=== PATIENT | male | born 1975 | race Caucasian/White ===

== ENCOUNTER 2020-06-12 12:56 | Outpatient (CLI) | payer OTHER, SELFPAY ==
--- NOTE | ~2020-06-12 | MR_ITS ---
EXAMINATION: MR brain/brain stem wo/w con EXAM DATE: 06/12/2020 13:56 INDICATION: Migraine headaches mostly right-sided beginning of this year. TECHNIQUE: Magnetic resonance imaging (MRI) of the brain/brain stem obtained without contrast. Sagit damien T1, axial diffusion, gradient echo (T2*), T1, T2, FLAIR sequences obtained. Patient was then inj ected with 20 cc intravenous Multihance contrast. Axial and coronal postcontrast T1 weighted sequence s obtained. There is no prior study for comparison. FINDINGS: There are no areas of restricted diffusion to suggest acute infarction. There is no acute hemorrhage seen on the T2*, a hemosiderin sensitive sequence. No intraparenchymal brain mass. The ve ntricles are normal in size. There are no extra-axial collections. Flow voids are seen in the cereb ral arteries on the T2-weighted sequences consistent with their expected patency. The orbits are unr emarkable. Soft tissue is unremarkable. There are no areas of abnormal enhancement on the postcont rast images. Small right maxillary sinus retention cyst. IMPRESSION: 1. Small right maxillary sinus retention cyst. 2. No suspicious brain findings. Reviewed, dictated and finalized at location A.
[2020-06-12 13:35] LABS: Estimated Glomerular Filt Rate > 60
== END 2020-06-12 12:57 | disposition home or self-care (01) ==
PROVIDERS: PCP Internal Medicine; Visit Provider Nurse Practitioner
DX: G43.909 Migraine, unspecified, not intractable, without status migrainosus (principal)
CPT/HCPCS: 70553; A9577

== ENCOUNTER 2021-06-19 14:30 | Outpatient (RCR) | payer OTHER, SELFPAY ==
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
--- NOTE | 2021-05-15 15:19 | PCPTNOTE ---
Patient called & cancelled scheduled appointment this date due to not feeling well.
--- NOTE | 2021-05-20 08:23 | PCPTNOTE ---
Patient called & cancelled scheduled appointment this date due to sickness.
--- NOTE | 2021-06-17 13:55 | PCPTNOTE ---
Addendum entered by Ning Hudson, TOOL GRINDER 06/17/21 14:11: Patient arrived to appointment thinking it was 14:30 this date, reminded appointment is at 14:30 on . Original Note: Patient did not show up for scheduled appointment this date; called and left voicemail for reminder on next appointment.
[2021-06-19 14:31] VITALS: BP_SYST 160
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
== END 2021-06-20 09:14 | disposition home or self-care (01) ==
LOC: ANHPT 14:30
PROVIDERS: PCP Internal Medicine; Visit Provider Nurse Practitioner
DX: M25.519 Pain in unspecified shoulder (principal)
CPT/HCPCS: 97014; 97110; 97140; 97162; G0283

== ENCOUNTER 2023-11-29 10:37 | Outpatient (CLI) | payer OTHER, SELFPAY ==
[2023-11-29 12:54] LABS: Basophils Percent Auto 0.5 % (0.2-1.2); Eosinophils Absolute Auto 0.2 K/mm3 (0-0.3); Eosinophils Percent Auto 2.4 % (0-4.4); Hematocrit 41.6 % (42.0-52.0); Hemoglobin 14.2 g/dL (14.0-18.0); Immature Granulocyte Absolute 0.02 K/mm3 (0.00-0.031); Immature Granulocyte Percent A 0.2 % (0-0.5); Lymphocytes Absolute Auto 2.86 K/mm3 (0.9-3.2); Lymphocytes Percent Auto 34.8 % (18.3-44.2); Mean Corpuscular HGB Conc 34.1 g/dl (32-36); Mean Corpuscular Hemoglobin 30.2 pg (26-34); Mean Corpuscular Volume 88.5 fl (80-100); Mean Platelet Volume 9.7 fl (7.4-10.4); Monocytes Absolute Auto 0.6 K/mm3 (0.1-0.6); Monocytes Percent Auto 6.9 % (2.6-8.5); Neutrophils Absolute Auto 4.5 K/mm3 (1.3-6.7); Neutrophils Percent Auto 55.2 % (45.5-73.1); Platelet Count Result 413 k/mm3 (150-375); Red Cell Distribution Width 12.9 % (11.5-14.5); White Blood Count 8.2 K/mm3 (4.5-10.0)
[2023-11-29 13:02] LABS: Alanine Aminotransferase 28 U/L (6-50); Albumin Level 4.2 g/dL (3.5-5.1); Alkaline Phosphatase 45 U/L (38-126); Anion Gap 7 mmol/L (8-16); Aspartate Amino Transferase 55 U/L (17-59); Bilirubin,Total 0.7 mg/dL (0.2-1.3); Blood Urea Nitrogen 25 mg/dL (9-20); Calcium 9.1 mg/dL (8.4-10.2); Carbon Dioxide 24 mmol/L (22-30); Chloride 107 mmol/L (98-107); Cholesterol 126 mg/dL (0-200); Estimated Glomerular Filt Rate 59; Glucose 102 mg/dL (65-110); HDL Direct 25 mg/dL; Potassium 4.2 mmol/L (3.4-5.0); Sodium 138 mmol/L (137-145); Triglycerides 55 mg/dL (<150)
[2023-11-29 13:14] LABS: LDL Cholesterol Direct 94 mg/dL
[2023-11-29 15:14] LABS: Hemoglobin A1C 5.4 % (<5.7)
== END 2023-11-29 10:38 | disposition home or self-care (01) ==
LOC: ANHGOSHLAB 10:38
PROVIDERS: PCP Family Medicine; Visit Provider Family Medicine
DX: R53.83 Other fatigue (principal); E16.1 Other hypoglycemia; Z13.220 Encounter for screening for lipoid disorders; Z13.228 Encounter for screening for other metabolic disorders; Z13.29 Encounter for screening for other suspected endocrine disorder
CPT/HCPCS: 36415; 80053; 80061; 83036; 84443; 85025

== ENCOUNTER 2023-12-04 09:54 | Outpatient (CLI) | payer OTHER, SELFPAY ==
--- NOTE | ~2023-12-04 | XR_ITS ---
XR elbow LT 2V 12/04/2023 10:32 INDICATION: Left elbow pain PROCEDURE: 2 views left elbow COMPARISON: No prior studies for comparison. FINDINGS: Fracture, dislocation or subluxation is not identified. The soft tissues appear within norm al limits. No foreign bodies are identified. IMPRESSION: 1: NO ACUTE BONE OR JOINT ABNORMALITY IDENTIFIED. Reviewed, dictated and finalized at location A.
== END 2023-12-04 09:55 ==
PROVIDERS: PCP Family Medicine; Visit Provider Family Medicine
DX: M25.522 Pain in left elbow (principal)
CPT/HCPCS: 73070

== ENCOUNTER 2024-06-08 01:49 | Day surgery (SDC) | payer OTHER, SELFPAY ==
[2024-05-30 15:17] VITALS: BMI 31.7
--- NOTE | 2024-05-30 15:27 | SUR.PREOP ---
Report to the Outpatient Waiting Room, entrance under the green pavilion located off [facility], at time 10:30a.m. on date 06/08/2024. Planned Procedure Time: 12:30 p.m.? Time changes happen often and if your time is changed the preop area will call you the afternoon before. - You and your visitor will be asked to self-screen and do not enter if you have any COVID symptoms. Please call surgeon if you need to reschedule. - A mask is optional within the hospital at this time. Patients may have clear liquids (water, carbonated beverages, clear teas, apple juice) until 3 hours prior to surgery with a maximum of 20 ounces. - No food from midnight until time of surgery and no smoking - Infants may have breast milk until 4 hours before surgery, formula 6 hours prior to surgery. - Children will be allowed to drink immediately following surgery.? If applicable, please bring a bottle or sippy cup to assist with drinking. Juice, water, soda, and popsicles are readily available.? For infants on formula, please bring formula the day of surgery.? Pacifiers are allowed. Take only the following medications with a SIP of water on the morning of surgery: N/A DO NOT STOP ANY OF YOUR OTHER PRESCRIPTION MEDICATIONS PRIOR TO SURGERY EXCEPT THE FOLLOWING Medications to discontinue per physician: N/A Date to take last dose N/A Please no make-up, nail greek, hairspray, perfume, deodorant, or body powder the day of surgery.? No jewelry (including any body piercings) or valuables the day of surgery, leave them at home.? Please take a shower or bath the night before, or the morning of, surgery with an antibacterial soap.? Wear comfortable, loose fitting clothing.? Children are encouraged to wear pajamas. - Jewelry must be removed prior to entering the operating room.? Rings and piercings that are not removed may be cut off. - The hospital will not accept responsibility for valuables.? - Please leave all valuables, including medications, at home the day of surgery. If you are going home after surgery, a licensed cement truck driver must drive you home.? - NO public transportation without another adult if you receive anesthesia. - We recommend that an adult stay with you for 24 hours following discharge. - We also recommend that you do not drive, make important decision, drink alcoholic beverages, or take any drugs that were not prescribed by your health care provider for at least 24 hours after your discharge time. For Pediatric surgeries, we recommend two adults accompany the child home. Follow any additional instructions given to you from your surgeon. Telephone instructions given to Mike Mckenzie and asked if any additional questions and then verbalized understanding. Patient advised to call surgeon office or pre surgery nurse liaison [phone] if any additional questions.
[2024-06-08] VITALS (9 sets, daily range): BP systolic 110–149; BP diastolic 73–95; PULSE 62–79; RESP 10–18; TEMP 36.3–36.4; O2SAT 98–100; BMI 33.3
--- NOTE | 2024-06-08 07:18 | WPDHPUPDATE1 ---
History and Physical Update Update Date/Time: 06/08/24 07:18 History and Physical has been reviewed, including an updated exam of the patient. There are NO changes in the patient's condition. Risks, benefits, and alternatives have been discussed and questions answered. Patient agrees to proceed with procedure.
[2024-06-08] MEDS: LACTATED RINGERS 1,000 ML 30 ML IV CONT ×2 (11:00→14:17)
[2024-06-08] MEDS: ACETAMINOPHEN 500 MG TABLET 1000 MG PO (11:27)
[2024-06-08] MEDS: KETOROLAC 15 MG/ML VIAL (*BKC) IV PUSH (11:27)
--- NOTE | 2024-06-08 11:55 | WPDANESEPPF ---
Anes - Initial Pre Proc Eval Procedure: Operation Date: 06/08/24 12:30 Proposed Procedures p Left Elbow Common Extensor Debridement - Yariel Arriola MD Date/Time: 06/08/24 11:55 Surgeon: Yariel Arriola MD Pre Op Diagnosis: Lt Elbow Lateral Epicondylitis Patient Data Age: 49 Gender: M Height: 1.83 m Weight: 111.6 kg Last Vital Signs Temp 97.5 F L 06/08/24 11:39 Pulse 68 06/08/24 11:39 Resp 18 06/08/24 11:39 BP 135/91 H 06/08/24 11:39 Pulse Ox 99 06/08/24 11:39 O2 Del Method Room Air 06/08/24 11:39 Allergies Allergy/AdvReac Type Severity Reaction Status Date / Time No Known Allergies Allergy Unknown Verified 05/30/24 15:16 Home Medications Medication Instructions Recorded Confirmed Type testosterone cypionate 100 mg/mL 50 mg IM MONTHLY 02/16/20 05/30/24 History intramuscular oil tadalafil 5 mg tablet 5 mg PO DAILY 10/27/23 05/30/24 History pantoprazole 40 mg tablet,delayed 40 mg PO BID #180 tabs 01/11/24 05/30/24 Rx release phentermine 37.5 mg capsule 37.5 mg PO DAILY #30 caps 04/10/24 05/30/24 Rx Patient hx anesthesia problems: none Family hx anesthesia problems: none Results Review: All pre-operative results and documents have been reviewed as part of the pre-operative evaluation. [facility] Past Medical History Medical History Hernia Hyperlipidemia Internal hemorrhoids Surgical History Surgical History H/O vasectomy 11/2019 History of hernia repair Family History Family History Mother Patient's mother is in good health Father Diabetes mellitus Social History Social History Social History: Caffeine occasionally Years smoked: 20 Smoking status: Former smoker Tobacco type: cigarettes Second hand tobacco smoke exposure: No Smoking end date: 08/26/17 Alcohol intake: never Substance use: never Substance use type: does not use Last use: 2017 Lack of Transportation: No Lack of Food: Never True Current Housing: I Have Housing Concerned About Future Housing: No Difficulty Paying Gas/Electric Bills: No Difficulty Paying for Meds: No Currently Unemployed: No Education: Associate Degree Difficulty w/ Childcare or Family Care: No Living arrangements: with family Anes - Eval Final PreProcedure Day of Procedure 06/08/24 11:55 Patient weight: obese Heart: regular rate and rhythm Lungs: clear to auscultation Airway: Mallampati scale class II Neurological: alert and oriented Last oral intake: >/= 8 hours ASA classification: II Emergent: no Anesthetic plan: proceed Anesthesia type and monitoring: general LMA and standard monitoring Results Review: All pre-operative results and documents have been reviewed as part of the pre-operative evaluation. Pt w LISA, has inspire device. Diet controlled hyperlipidemia. Informed Consent: The patient's anesthetic plan and its attendant risks and benefits were discussed with the patient/family/POA. Questions were solicited and answers provided to the satisfaction of the patient/family/POA.
[2024-06-08] MEDS: ceFAZolin 2 GM/D5W 50 ML 2 GM/50 ML BAG IVPB (12:25)
[2024-06-08] MEDS: BUPIVACAINE/EPINEPHRINE 0.5% 50 ML VIAL 30 ML INFILTRATE (12:55)
--- NOTE | 2024-06-08 13:46 | P.OP_ITS ---
Procedure Note - Detailed Date of Procedure 06/08/24 Pre-op Diagnosis Lt Elbow Lateral Epicondylitis Post-op Diagnosis Same Procedure Performed Common extensor tendon debridement left elbow. 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 Findings Typical degenerative tendon at the extensor carpi radialis brevis insertion. Description of Procedure Preoperative antibiotics were given. The arm was prepped and draped in the usual sterile fashion with a well-padded tourniquet high in the arm. A longitudinal incision was created at the lateral epicondyle anterior to the radial head. The interval between the extensor carpi radialis longus and the common extensor tendon was easily identified and split. The common extensor tendon was elevated and the extensor carpi radialis brevis was identified. There was significant degenerative tissue and evidence of rupture, corresponding with the MRI findings. Tissue was sharply debrided and then the scratch test was used to complete the debridement. The bony attachment was lightly debrided with the curette and rongeur. Inspection of the joint revealed no abnormal findings. The lateral collateral ligament was intact and preserved. Wound was copiously irrigated. Tourniquet was released. Meticulous hemostasis obtained. The fascial interval was closed with 2-0 Vicryl suture. The subcutaneous tissues and skin were closed with interrupted 3-0 Monocryl suture and 4-0 Monocr yl suture. Steri-Strips were placed followed by Mepilex dressing. Soft padding and light Ramon bandage applied. A sling placed. Cock-up wrist splint applied. The patient was extubated and brought to the recovery room in stable condition. 0.5% Marcaine with epinephrine was used for perioperative pain control. Estimated Blood Loss 5 Drains No Packing No Pathology None sent Complications No immediate complications Condition Stable Disposition PACU [facility] Billing Surgery - Charge Forward: Surgery Billing
== END 2024-06-08 15:09 | disposition home or self-care (01) ==
PROVIDERS: PCP Family Medicine; Visit Provider Orthopaedic Surgery
PROC: (CPT 24358; principal; 2024-06-08 12:30)
DX: M77.12 Lateral epicondylitis, left elbow (principal); S56.512A Strain of other extensor muscle, fascia and tendon at forearm level, left arm, initial encounter; E78.5 Hyperlipidemia, unspecified; E66.9 Obesity, unspecified; Z68.33 Body mass index [BMI] 33.0-33.9, adult; Z98.890 Other specified postprocedural states; Z87.891 Personal history of nicotine dependence; X58.XXXA Exposure to other specified factors, initial encounter
CPT/HCPCS: 24358; A9270; J0690; J1100; J1170; J1885; J2250; J2405; J2704; J3010; J7120

== ENCOUNTER 2024-09-03 10:38 | Emergency (ER) | payer OTHER, SELFPAY ==
[2024-09-03 10:41] VITALS: BP 157/98; PULSE 81; RESP 20; O2SAT 97
[2024-09-03 10:43] VITALS: BP 170/90; PULSE 81; RESP 20; TEMP 36.6; O2SAT 97
--- NOTE | 2024-09-03 11:18 | ED.GENADULT ---
HPI - General Adult General Chief complaint: Neuro Symptoms/Deficit Stated complaint: nuero Time Seen by Provider: 09/03/24 11:00 History of Present Illness HPI narrative: Patient is a 49-year-old male who presents ER with tingling and weakness to the right face. Two days ago he started feeling like his lip and jaw were numb like he had been at the [place]. This increased over last 2 days and he is having trouble with drinking. He also has noticed that his strength on the right side is not as strong in the eyebrow and cheek. No arm or leg weakness or numbness. No trauma. Has had a mild cold recently. Related Data Home Medications ?Medication ?Instructions ?Recorded ?Confirmed ?Last Taken ?Type testosterone cypionate 100 mg/mL 50 mg IM MONTHLY 02/16/20 07/21/24 Unknown History intramuscular oil tadalafil 5 mg tablet 5 mg PO DAILY 10/27/23 07/21/24 06/07/24 History Allergies Allergy/AdvReac Type Severity Reaction Status Date / Time No Known Allergies Allergy Unknown Verified 09/03/24 10:40 Review of Systems Constitutional: Constitutional: Reports no additional constitutional complaints Eyes: Eyes: Reports no additional eye complaints Neurologic: Denies headache(s), Reports focal weakness and Reports numbness PMFSH Past Medical History Medical History (Updated 09/03/24 @ 11:21 by Alberto Gil MD) Internal hemorrhoids Hernia Hyperlipidemia Surgical History Surgical History (Updated 07/21/24 @ 08:03 by Mary Shah [facility]) History of elbow surgery (~06/08/24) Left elbow common extensor MI H/O vasectomy 11/2019 History of hernia repair Family History Family History Mother Patient's mother is in good health Father Diabetes mellitus Social History Social History Social History: Caffeine occasionally Years smoked: 20 Smoking status: Former smoker Tobacco type: cigarettes Second hand tobacco smoke exposure: No Smoking end date: 08/26/17 Alcohol intake: never Substance use: never Substance use type: does not use Last use: 2016 Lack of Transportation: No Lack of Food: Never True Current Housing: I Have Housing Concerned About Future Housing: No Difficulty Paying Gas/Electric Bills: No Difficulty Paying for Meds: No Currently Unemployed: No Education: Associate Degree Difficulty w/ Childcare or Family Care: No Living arrangements: with family Exam Narrative: GENERAL: Well-appearing, well-nourished, and in no acute distress. HEAD: Normocephalic, atraumatic. ENT: Mucous membranes moist. CHEST: Clear to auscultation. No respiratory distress. HEART: Regular rate and rhythm. Normal peripheral pulses. EXTREMITIES: Normal range of motion. No edema. SKIN: Warm, dry, no rash. NEURO: Alert and oriented x3. Weakness of the right face when trying to lift both eyebrows and unable to smile on the right. No upper extremity drift. 5/5 BUE strngth. Normal heel to diane testing. PSYCH: Normal mood and affect. Course Course Emergency Course: patient informed of diagnosis. Discussed treatment plan. Given reassurance. Discharged home and follow-up with PCP. Discussed her eye protection at night and while at work. Vital Signs Vital signs: Vital Signs Pulse Rate 81 09/03/24 10:41 Respiratory Rate 20 09/03/24 10:41 Blood Pressure 157/98 H 09/03/24 10:41 Pulse Oximetry 97 09/03/24 10:41 Temperature 97.9 F 09/03/24 10:43 Pulse Rate 81 09/03/24 10:43 Respiratory Rate 20 09/03/24 10:43 Blood Pressure 170/90 H 09/03/24 10:43 Pulse Oximetry 97 09/03/24 10:43 Oxygen Delivery Room Air 09/03/24 10:43 Medical Decision Making Vital Signs Vital Signs: Vital Signs Pulse Rate 81 09/03/24 10:41 Respiratory Rate 20 09/03/24 10:41 Blood Pressure 157/98 H 09/03/24 10:41 Pulse Oximetry 97 09/03/24 10:41 Temperature 97.9 F 09/03/24 10:43 Pulse Rate 81 09/03/24 10:43 Respiratory Rate 20 09/03/24 10:43 Blood Pressure 170/90 H 09/03/24 10:43 Pulse Oximetry 97 09/03/24 10:43 Oxygen Delivery Room Air 09/03/24 10:43 Discharge Plan Discharge Clinical Impression: Davenport's palsy Patient Disposition: Home, Self-Care Condition: Stable Instructions: Davenport Palsy (ED) Additional Instructions: Return the ER if you have weakness in arm or leg, you develop chest pain shortness of breath, you can not keep down food water, or you have additional concerns. Use a eye shield when sleeping to protect her eye from being scratched. Use lubricating eye drops to keep the eye from drying out, and take the prescribed steroid and antiviral medication to help speed your recovery. Patient Language: Divehi Prescriptions: New valacyclovir 1 gram tablet 1,000 mg PO TID 7 Days Qty: 21 0RF prednisone 20 mg tablet 60 mg PO DAILY 7 Days Qty: 21 0RF prednisone 20 mg tablet 60 mg PO DAILY Qty: 21 0RF valacyclovir 1 gram tablet 1,000 mg PO TID Qty: 21 0RF No Action testosterone cypionate 100 mg/mL oil 50 mg IM MONTHLY Rx Instructions: as a single dose. PRESCRIBED BY DR. ARRIAGA tadalafil 5 mg tablet 5 mg PO DAILY phentermine 37.5 mg capsule 37.5 mg PO DAILY Qty: 30 0RF Rx Instructions: must administer 30 minutes before or 1-2 hours after breakfast pantoprazole 40 mg tablet,delayed release (/EC) 40 mg PO BID Qty: 180 1RF Follow-up/Referrals: Johnny Schmitt DO [Primary Care Provider] - 1 Week
--- OUTSIDE RECORDS SUMMARY | 2024-09-10 13:56 | XMS_ITS | Encounter Summary ---
Author Organization [facility] Address [address] [place] [id number] Care Team Providers Care Track Worker Name Role Phone Unavailable Primary Care Provider Unavailabl e Encounter Details Date Type Department Care Team (Late st Contact Info) Description 12/04/2020 Lab Requisition [facility] [place] [facility] Community Testing [facility] [address] [place] [address] Syed Valentine MD [address] [place] [address] [address] [place], [place] [id number] Social History Tobacco Use Types Packs/Day Years Used Date Smoking Tobacco: Never Assessed Sex and Gender Information Value Date Recorded Sex Assigned at Not on file Legal Sex Male 11:08 AM CDT Gender Identity Not on file Sexual Orientation Not on file documented as of this encounter Plan of Treatment Not on file documented as of this encounter Procedures Procedure Name Priority Date/Time Associated Diagnosis Comments SARS-COV-2 PCR [facility] ONLY Routine 12/04/2020 11:12 AM CDT documented in this encounter Visit Diagnoses Not on filedocumented in this encounter
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
--- OUTSIDE RECORDS SUMMARY | 2024-09-10 13:56 | XMS_ITS | Referral Summary ---
Author Organization [facility] Address [address] [place] [address] Care Team Providers Care Shirt Line Operator Name Role Phone Garrett Jean DO Primary Care Provider [phone] [phone] Source Comments [facility],non-owned Affiliates and Associated Physician Practices is amultiple site organization consisting of ambulatory clinics and hospital sitesin [place], [place], [place] and [place]. This disclosure is being madepursuant to the Care Everywhere program and may not contain all information available regarding this patient. Last updated 18.[facility] Medications * Be aware that medications may not be up to date on this document. Alwaysverify current medications with the patient. Medication Sig Dispensed Refills Start Date End Date Status B-D INSULIN SYRINGE 1CC/25GX1 25G X 1 1 ML MISC USE TO INJECT 0.2 ML TESTOSTERONE EVERY 3 DAYS 3 12/09/2017 Active pantoprazole EC (PROTONIX) 40 MG tablet 12/27/2017 Active testosterone cypionate (DEPO-TESTOTERONE) 200 MG/ML injection INJECT 0.2 ML INTERMUSCULARLY EVERY 3 DAYS 3 12/08/2017 Active ofloxacin (FLOXIN) 0.3 % otic solution 5 drops 2 times daily Apply 5 drops with mycolog 5 mL 12/28/2017 Active nystatin/triamcino lone (MYCOLOG) 799739-1.1 UNIT/GM-% ointment Apply to affected area 2 times daily Apply 3 times per week with external ear infections 500 g 2 12/28/2017 Active Active Problems Problem Noted Date Diagnosed Date Sensorineural hearing loss (SNHL) of both ears 0 12/28/2017 Chronic reactive otitis externa of both ears Social History Tobacco Use Types Packs/Day Years Used Date Smoking Tobacco: Former Cigarettes Q uit: 08/2017 Smokeless Tobacco: Never Tobacco Cessation:Counseling Given: Yes Alcohol Use Standard Drinks/Week Comments Yes 0 (1 standard drink = 0.6 oz pur e alcohol) yearly Sex and Gender Information Value Date Recorded Sex Assigned at Not on file Gender Identity Not on file Sexual Orientation Not on file Last Filed Vital Signs Vital Sign Reading Time Taken Comments Blood Pressure 132/90 12/28/2017 2:40 PM CDT Pulse 82 12/28/2017 2:40 PM CDT Temperature - - Respiratory Rate - - Oxygen Saturation - - Inhaled Oxygen Concentration - - Weight 115.2 kg (254 lb) 12/28/2017 2:40 PM CDT Height 182.9 cm (6') 12/28/2017 2:40 PM CDT Body Mass Index 34.45 12/28/2017 2:40 PM CDT Plan of Treatment Not on file Care Teams Shirt Line Operator Relationship Specialty Start Date End Date Garrett Jean DO PCP - General 12/22/17
--- OUTSIDE RECORDS SUMMARY | 2024-09-10 13:56 | XMS_ITS | Clinical Summary ---
Author Organization [facility] Care Team Providers Care Dredge Boat Engineer Name Role Phone Unavailable Primary Care Provider Unavailabl e Social History Tobacco Use Types Packs/Day Years Used Date Smoking Tobacco: Never Assessed Sex and Gender Information Value Date Recorded Sex Assigned at Not on file Legal Sex Male 11:08 AM CDT Gender Identity Not on file Sexual Orientation Not on file Plan of Treatment Health Maintenance Due Date Last Done Comments Hepatitis C Virus (HCV) Screening 1977 TdaP Immunization 1977 Hepatitis B Immunization (1 of 3 - 19+ 3-dose series) 1996 Colonoscopy 2022 Colorectal Cancer Screening 2022 SARS-COV-2 Immunization ( season) 2023 Influenza Immunization (Seas on Ended) 2024 Meningococcal Immunization (ACWY) Aged Out No longer eligible based on patient's age to complete this topic Pneumococcal Immunization Combined Aged Out No longer eligible based on patient's age to complete this topic Rotavirus Immunization Aged Out No lo nger eligible based on patient's age to complete this topic
--- OUTSIDE RECORDS SUMMARY | 2024-09-10 13:56 | XMS_ITS | Clinical Summary ---
Author Organization [facility] Address [address] [place] [address] Care Team Providers Care Wood Window And Door Craftsman Name Role Phone Garrett Jean DO Primary Care Provider [phone] [phone] Source Comments [facility],non-owned Affiliates and Associated Physician Practices is amultiple site organization consisting of ambulatory clinics and hospital sitesin [place], [place], [place] and [place]. This disclosure is being madepursuant to the Care Everywhere program and may not contain all information available regarding this patient. Last updated 18.[facility] Medications * Be aware that medications may [...] 5 mL 12/28/2017 Active nystatin/triamcino lone (MYCOLOG) 182575-5.1 UNIT/GM-% ointment Apply to affected area 2 times daily Apply 3 times per week with external ear infections 500 g 2 12/28/2017 Active Active Problems Problem Noted Date Diagnosed Date Sensorineural hearing loss (SNHL) of both ears 0 12/28/2017 Chronic reactive otitis externa of both ears Family History Medical History Relation Name Comments CVA Father Cancer - Other Father Diabetes - Type 2 Father Relation Name Status Comments Father Social History Tobacco Use Types Packs/Day Years [...] 12/28/2017 2:40 PM CDT Plan of Treatment Health Maintenance Due Date Last Done Comments COLOGUARD (AGES 45-75) - COL ON CA SCREENING 1977 COLON MONITORING 1977 COLONOSCOPY - COLON CA SCREENING 1977 CT COLONOGRAPHY - COLON CA SCREENING 1977 Colorectal Cancer Screening 1977 FIT - COLON CA SCREENING 1977 FLEX SIG - COLON CA SCREENING 1977 LIPID TESTING 1977 HIV SCREENING 1992 HEPATITIS C SCREENING 05/08/1995 DTAP/TDAP/TD VACCINES (1 - Tdap) 1996 HEPATITIS B VACCINE (1 of 3 - 19+ 3-dose series) 1996 SCREENING FOR DIABETES 12/28/2017 DEPRESSION SCREENING 09/13/2023 COVID-19 VACCINE ( - 2023-2 5 season) 2024 INFLUENZA VACCINE (#1) 2024 ZOSTER VACCINE (1 of 2) 2027 HIB VACCINE Aged Out No longer eligi ble based on patient's age to complete this topic HPV VACCINE Aged Out No longer eligi ble based on patient's age to complete this topic MENINGOCOCCAL VACCINE Aged Out No estela alexia eligible based on patient's age to complete this topic PNEUMOCOCCAL VACCINE Aged Out No long er eligible based on patient's age to complete this topic Care Teams Wood Window And Door Craftsman Relationship Specialty Start Date End Date Garrett Jean DO PCP - General 12/22/17
--- OUTSIDE RECORDS SUMMARY | 2024-09-10 13:56 | XMS_ITS | Encounter Summary ---
Author Organization [facility] Address [address] [place] [address] Care Team Providers Care Termite Treater Name Role Phone RacquelGarrett cruz Brittanie DO Primary Care Provider [phone] [phone] Reason for Visit * Reason Comments Establish Care Ear Infection Frequent Encounter Details Date Type Department Care Team (Late st Contact Info) Description 12/28/2017 2:30 PM CDT Office Visit [facility] OTOLARYNGOLOGY [address], [address] [place] [address] Jonathan Layne MD [address] [place] [address] Chronic reactive otitis externa of both ears (Primary Dx); Sensorineural hearing loss (SNHL) of both ears Social History Tobacco Use [...] on file documented as of this encounter Last Filed Vital Signs Vital Sign Reading [...] Mass Index 34.45 12/28/2017 2:40 PM CDT documented in this encounter Patient Instructions * Patient Instructions* Sylvie Roberts - 12/28/2017 2:41 PM CDT Thank you for visiting [facility] Otolaryngology - Head & Neck Surgery. We appreciate your confidence in allowing us to participate in your health care. You may receive a survey about your visit with us today. Making our patients happy isn???t just happy talk; it???s ourmission. Please tell us if we made the right impression on you- and how we can serve you better. Please SAVE the information below, it will assist you when it???s time for you to contact us. ??? To MAKE - CHANGE - CANCEL an office appointment If you become ill, need to be seen before your next scheduled appointment, or need to cancel or reschedule an appointment, please call our office at [phone] Wednesday through Wednesday from 8:30 am to4:30 pm. You can also request a routine appointment through your Fan TV account. ??? Prescription Refills Contact your pharmacy to request all refills. The pharmacy will need to fax the request to us at . Please allow a minimum of 48-72 hours for your prescription to be completed. Your pharmacy will notify you when your prescription is ready to be picked up. ??? Medical Emergency / After Hours Contact Information If you have a medical emergency, please call 911 or go to the nearest emergency room. For urgent medical calls, which cannot wait until the office opens, please call the medical exchange at and ask the pack operator to page the ENT physician munitions factory worker. *Caller ID blocking service will need to be turned off for your call to be returned. We also specialize in Hearing Aids, Allergy testing, swallowing disorders, voice problems, cancer diagnosis, and so much more. Visit our website at [email or web address] for information about our practice and an interactive health encyclopedia. documented in this encounter Progress Notes * Jonathan Layne MD - 12/28/2017 3:01 PM CDT [facility] Department of Otolaryngology-Head and Neck Surgery Division of Otology, Neurotology, and Lateral Skull Base Surgery History of Present Illness Chief complaint: Ear infections Jonathan is a 42 y.o. male who is seen in consultation for evaluation of ear infections. States that he has had bilateral ear infections since 2000. Since 2005 he has had multiple ear infections estimates 6-8 per year with the most recent being a month ago. Does endorse EAC symptomatology and swelling. Has had to have srinivasa placed previous. Denies otorrhea. + bilateral crusting. 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 Denies otologic surgery Denies family hx of hearing problems. . Past History No past medical history on file. Current Outpatient Prescriptions Medication Sig Dispense Refill ??? B-D INSULIN SYRINGE 1CC/25GX1 25G X 1 1 ML MISC USE TO INJECT 0.2 ML TESTOSTERONE EVERY 3 DAYS 3 ??? pantoprazole EC (PROTONIX) 40 MG tablet ??? testosterone cypionate (DEPO-TESTOTERONE) 200 MG/ML injection INJECT 0.2 ML INTERMUSCULARLY EVERY 3 DAYS 3 No current facility-administered medications for this visit. Not on File Past Surgical History: Procedure Laterality Date ??? Hernia Repair ??? Septoplasty ??? [place] Tooth Extraction Family History Problem Relation Age of Onset ??? Cancer - Other Father ??? Diabetes - Type 2 Father ??? CVA Father Social History Social History ??? Marital status: Single Spouse name: N/A ??? Number of children: N/A ??? Years of education: N/A Occupational History ??? Not on file. Social History Main Topics ??? Smoking status: Former Smoker Quit date: 08/2017 ??? Smokeless tobacco: Never Used ??? Alcohol use Yes Comment: yearly ??? Drug use: No ??? Sexual activity: Not on file Other Topics Concern ??? Not on file Social History Narrative ??? No narrative on file Review of Systems ROS: A complete 11 point review of systems was reviewed and was negative except for: Ears: excessive noise exposure (loud music), ear pain, loss of hearing, drainage ?? Physical Examination BP 132/90 (BP SITE: LEFT ARM, BP POSITION: SITTING, BP CUFF SIZE: 11) Pulse 82 Ht 6' (1.829 m) Wt 254 lb (115.2 kg) BMI 34.45 kg/m2 Body mass index is 34.45 kg/(m^2). Physical Exam: Constitutional: Alert, No acute Distress; Well developed/well nourished Neuro:cranial nerves II-XII grossly intact. Of note CN V bilaterally are intact and symmetric and HB 1 bilaterally. CV/Pulm: Normal respirations and peripheral pulses. Eyes: PERRL, EOMI Face/Skin: normal appearance, no lesions/masses Right Ear: Mastoid non-tender, pinna WNL without lesion, EAC clear, TM intact with normal landmarkls, HENRIQUE Left Ear: Mastoid non-tender, pinna WNL without lesion, EAC clear, TM intact with normal landmarks,HENRIQUE Nose: patent bilaterally, septum fairly straight, Turbinates intact, Mucosal membranes intact Mouth and oropharynx: symmetric tongue mobility, no lesions/masses/ulcers, normal dentition Neck: supple, no lymphadenopathy, no masses, Trachea midline, Thyroid without palpable nodules. Voice: strong MusculoSkeletal: moves all extremities well Audio:Personally reviewed with bilateral SNHL with type A tympas. Assessment 1. Chronic reactive otitis externa of both ears 2. Sensorineural hearing loss (SNHL) of both ears Plan 1. On exam Mr Mckenzie has a normal otologic exam today. His has pictures of his ears while infected and on review along with his history this is consistent with otitis externa. This is likely due to the fact that he uses ear plugs for hearing protection and sweats a great deal. 2. Recommend that he dry his ears after getting them wet with chairman emeritus. 3. Script for mycolog and floxin given to patient. Will start with floxin daily and mycolog every 3days once he starts to have symptoms. 4. Continue hearing protection 5. Follow up in 3 months sooner if there any issues. Jonathan Layne MD Act English Tutor at [facility] Department of Otolaryngology - Head and Neck Surgery Division of Otology, Neurotology and Lateral Skull Base Surgery * JefersonMega davisonra - 12/28/2017 2:38 PM CDT Review of Systems Jonathan Mckenzie reports the following; Ears: excessive noise exposure (loud music), ear pain, loss of hearing, drainage documented in this encounter Plan of Treatment Not on file documented as of this encounter Visit Diagnoses Diagnosis Chronic reactive otitis externa of both ears- Primary Sensorineural hearing loss (SNHL) of both ears documented in this encounter Care Teams Termite Treater Relationship Specialty Start Date End Date Garrett Jean DO PCP - General 12/22/17 documented as of this encounter
--- OUTSIDE RECORDS SUMMARY | 2024-09-10 13:56 | XMS_ITS | Encounter Summary ---
Author Organization [facility] Address [address] [place] [address] Care Team Providers Care Insurance Representative Name Role Phone Unavailable Primary Care Provider Unavailabl e Encounter Details Date Type Department Care Team (Late st Contact Info) Description 12/04/2020 11:15 AM CDT Rapid Evaluation [place] [facility] Community Testing [address] [address] Social History Tobacco Use Types Packs/Day Years Used Date Smoking Tobacco: Never Assessed Sex and Gender Information Value Date Recorded Sex Assigned at Not on file Legal Sex Male 11:08 AM CDT Gender Identity Not on file Sexual Orientation Not on file documented as of this encounter Plan of Treatment Not on file documented as of this encounter Visit Diagnoses Not on filedocumented in this encounter
--- OUTSIDE RECORDS SUMMARY | 2024-09-10 13:56 | XMS_ITS | Patient Health Summary ---
Author Organization [facility] Address [address] [place] [address] Care Team Providers Care Camp Dishwasher Name Role Phone Garrett Jean DO Primary Care Provider [phone] Note from [facility],non-owned Affiliates and Associated Physician Practices is amultiple site organization consisting of ambulatory clinics and hospital sitesin [place], [place] and [place]. This disclosure is being madepursuant to the Care Everywhere program and may not contain all information available regarding this patient. Last updated 18.[facility] Medications * Be aware that medications may not be up to date on this document. Alwaysverify current medications with the patient. * B-D INSULIN SYRINGE 1CC/25GX1 25G X 1 1 ML MISC(Started 12/09/2017) USE TO INJECT 0.2 ML TESTOSTERONE EVERY 3 DAYS 3 refills left * pantoprazole EC (PROTONIX) 40 MG tablet(Started 12/27/2017) * testosterone cypionate (DEPO-TESTOTERONE) 200 MG/ML injection(Started 12/08/2017) INJECT 0.2 ML INTERMUSCULARLY EVERY 3 DAYS 3 refills left * ofloxacin (FLOXIN) 0.3 % otic solution(Started 12/28/2017) 5 drops 2 times daily Apply 5 drops with mycolog * nystatin/triamcinolone (MYCOLOG) 668444-3.1 UNIT/GM-% ointment(Started 12/28/2017) Apply to affected area 2 times daily Apply 3 times per week with external ear infections 2 refills remaining Active Problems Problem Noted Date Diagnosed Date [...] Mass Index 34.45 12/28/2017 2:40 PM CDT Procedures * AUDIOLOGY/TYMPANOMETRY ORDER(Performed 12/30/2017) Results * AUDIOLOGY/TYMPANOMETRY ORDER (12/30/2017 5:40 AM CDT) Narrative 12/30/2017 5:40 AM CDT Ordered by an unspecified provider. Scanned Document [facility] Care Teams Camp Dishwasher Relationship Specialty Start Date End Date Garrett Jean DO PCP - General 12/22/17
--- OUTSIDE RECORDS SUMMARY | 2024-09-10 15:02 | XMS_ITS | Patient Health Summary ---
Author Organization [facility] Address [address] [place] [address] Care Team Providers Care Audio Video Technician Name Role Phone Garrett Jean DO Primary Care Provider [phone] Note from [facility],non-owned Affiliates and Associated Physician Practices is amultiple site organization consisting of ambulatory clinics and hospital sitesin [place], [place], [place] and [place]. This disclosure is being madepursuant to the Care Everywhere program and may not contain all information available regarding this patient. Last updated 18.[facility] Medications * Be aware that medications may [...] 5 drops with mycolog * nystatin/triamcinolone (MYCOLOG) 528243-8.1 UNIT/GM-% ointment(Started 12/28/2017) Apply to affected area [...] unspecified provider. Scanned Document [facility] Care Teams Audio Video Technician Relationship Specialty Start Date End Date Garrett Jean DO PCP - General 12/22/17
--- OUTSIDE RECORDS SUMMARY | 2024-09-10 15:02 | XMS_ITS | Clinical Summary ---
Author Organization [facility] Address [address] [place] [address] Care Team Providers Care Sales Product Manager Name Role Phone Garrett Jean DO Primary Care Provider [phone] Source Comments [facility],non-owned Affiliates and Associated Physician Practices is amultiple site organization consisting of ambulatory clinics and hospital sitesin [place], [place], [place] and [place]. This disclosure is being madepursuant to the Care Everywhere program and may not contain all information available regarding this patient. Last updated 18.[facility] Medications * Be aware that medications may [...] 5 mL 12/28/2017 Active nystatin/triamcino lone (MYCOLOG) 623895-0.1 UNIT/GM-% ointment Apply to affected area 2 [...] age to complete this topic Care Teams Sales Product Manager Relationship Specialty Start Date End Date Garrett Jean DO PCP - General 12/22/17
--- OUTSIDE RECORDS SUMMARY | 2024-09-10 15:02 | XMS_ITS | Encounter Summary ---
Author Organization [facility] Address [address] [place] [address] Care Team Providers Care Pad Extraction Tender Name Role Phone RacquelGarrett cruz Brittanie DO Primary Care Provider [phone] Reason for Visit * Reason Comments Establish Care Ear Infection Frequent Encounter Details Date Type Department Care Team (Late st Contact Info) Description 12/28/2017 2:30 PM CDT Office Visit [facility] OTOLARYNGOLOGY [address], [address] [place] [address] Jonathan Layne MD [address] DEPT [place] [address] Chronic reactive otitis externa of both ears [...] 2:41 PM CDT Thank you for visiting [facility] Otolaryngology - Head & Neck Surgery. We [...] an appointment, please call our office at [phone] Wednesday through Wednesday from 8:30 am to4:30 pm. You can also request a routine appointment through your [employer] account. ??? Prescription Refills Contact your pharmacy [...] the medical exchange at and ask the foreman or supervisor and operator to page the ENT physician chief compressor station engineer. *Caller ID blocking service will need to be turned off for your call to be returned. We also specialize in Hearing Aids, Allergy testing, swallowing disorders, voice problems, cancer diagnosis, and so much more. Visit our website at [email or web address] for information about our practice and an interactive health encyclopedia. documented in this encounter Progress Notes * Jonathan Layne MD - 12/28/2017 3:01 PM CDT [facility] Department of Otolaryngology-Head and [...] Date ??? Hernia Repair ??? Septoplasty ??? [place] Tooth Extraction Family History Problem Relation Age [...] his ears after getting them wet with chair inspector. 3. Script for mycolog and floxin given to patient. Will start with floxin daily and mycolog every 3days once he starts to have symptoms. 4. Continue hearing protection 5. Follow up in 3 months sooner if there any issues. Jonathan Layne MD Coal Pulverizing Operator at [facility] Department of Otolaryngology - [...] ears documented in this encounter Care Teams Pad Extraction Tender Relationship Specialty Start Date End Date Garrett Jean DO PCP - General 12/22/17 documented as of this encounter
--- OUTSIDE RECORDS SUMMARY | 2024-09-10 15:02 | XMS_ITS | Encounter Summary ---
Author Organization [facility] Address [address] [place] [address] Care Team Providers Care Back Closer Name Role Phone RacquelGarrett cruz Primary Care Provider [phone] Encounter Details Date Type Department Care Team (Latest Contact Info) Description 12/28/2017 2:00 PM CDT Office Visit [facility] OTOLARYNGOLOGY [address], [address] [place] [address] Lluvia Delgado AuD [id number] [place] [address] Sensorineural hearing loss (SNHL) of both ears [...] a mild to moderate, sensorineural hearing loss 6926-2513 Hz in the left ear. Asymmetry noted 6010-9997 Hz, left worse than right. Word recognition ability was excellent,bilaterally (W-22, rec, 25 word lists). RECOMMENDATIONS: 1) Follow up per ENT regarding asymmetric hearing loss. 2) Annual hearing evaluation. 3) Use of hearing protection in noise. Owen Araiza, RYAN-A Fire Alarm Installer documented in this encounter Plan of Treatment Not on file documented as of this encounter Visit Diagnoses Diagnosis Sensorineural hearing loss (SNHL) of both ears- Primary documented in this encounter Care Teams Back Closer Relationship Specialty Start Date End Date Garrett Jean DO PCP - General 12/22/17 documented as of this encounter
--- OUTSIDE RECORDS SUMMARY | 2024-09-10 15:02 | XMS_ITS | Clinical Summary ---
Author Organization [facility] Care Team Providers Care Marketing Account Executive Name Role Phone Unavailable Primary Care Provider [...]
--- OUTSIDE RECORDS SUMMARY | 2024-09-10 15:02 | XMS_ITS | Encounter Summary ---
Author Organization [facility] Address [address] [place] [id number] Care Team Providers Care Oil Well Logging Engineer Name Role Phone Unavailable Primary Care Provider Unavailabl e Encounter Details Date Type Department Care Team (Late st Contact Info) Description 12/04/2020 11:15 AM CDT Rapid Evaluation [place] [facility] Community Testing [address] [address] Social History Tobacco Use Types Packs/Day Years [...]
--- OUTSIDE RECORDS SUMMARY | 2024-09-10 15:02 | XMS_ITS | Referral Summary ---
Author Organization [facility] Address [address] [place] [address] Care Team Providers Care Superintendent Renting Managing Name Role Phone Garrett Jean DO Primary Care Provider [phone] Source Comments [facility],non-owned Affiliates and Associated Physician Practices is amultiple site organization consisting of ambulatory clinics and hospital sitesin [place], [place], [place] and [place]. This disclosure is being madepursuant to the Care Everywhere program and may not contain all information available regarding this patient. Last updated 18.[facility] Medications * Be aware that medications may [...] 5 mL 12/28/2017 Active nystatin/triamcino lone (MYCOLOG) 412419-5.1 UNIT/GM-% ointment Apply to affected area 2 [...] of Treatment Not on file Care Teams Superintendent Renting Managing Relationship Specialty Start Date End Date Garrett Jean DO PCP - General 12/22/17
--- OUTSIDE RECORDS SUMMARY | 2024-09-10 15:02 | XMS_ITS | Encounter Summary ---
Author Organization [facility] Address [address] [place] [address] Care Team Providers Care Golf Club Head Inspector Name Role Phone Unavailable Primary Care Provider Unavailabl e Encounter Details Date Type Department Care Team (Late st Contact Info) Description 12/04/2020 Lab Requisition [facility] Community Testing [facility] [address] [place] [address] Syed Valentine MD [address] [place] [address] [address] [place], [place] [address] Social History Tobacco Use Types Packs/Day Years [...]
== END 2024-09-03 11:44 | disposition home or self-care (01) ==
PROVIDERS: Emergency Provider Emergency Medicine; PCP Family Medicine
DX: G51.0 Bell's palsy (principal); E78.5 Hyperlipidemia, unspecified
CPT/HCPCS: 99283

== ENCOUNTER 2025-01-08 15:33 | Outpatient (CLI) | payer OTHER, SELFPAY ==
--- OUTSIDE RECORDS SUMMARY | 2025-01-08 17:41 | XMS_ITS | Clinical Summary ---
Author Organization [facility] Care Team Providers Care Fabrication Department Supervisor Name Role Phone Unavailable Primary Care Provider [...] 1996 Colonoscopy 2022 Colorectal Cancer Screening 2022 Influenza Immunization (#1) 2024 SARS-COV-2 Immunization ( season) 2024 Respiratory Syncytial Virus (RSV) Immunization (Adult) (1 - 1-dose 75+ series) 2052 Meningococcal Immunization (ACWY) Aged Out No longer eligible based on patient's age to complete this topic Pneumococcal Immunization Combined Aged Out No longer eligible based on patient's age to complete this topic Rotavirus Immunization Aged Out No lo nger eligible based on patient's age to complete this topic
--- OUTSIDE RECORDS SUMMARY | 2025-01-08 17:41 | XMS_ITS | Clinical Summary ---
Author Organization [facility] [employer] Address [address] [place] [address] Care Team Providers Care Windshield Installer Name Role Phone Garrett Jean DO Primary Care Provider [phone] Source Comments [facility] [employer],non-owned Affiliates and Associated Physician Practices is amultiple site organization consisting of ambulatory clinics and hospital sitesin [place], [place], [place] and [place]. This disclosure is being madepursuant to the Care Everywhere program and may not contain all information available regarding this patient. Last updated 18.[facility] [employer] [facility] Medications * Be aware that medications may not be up to date on this document. Alwaysverify current medications with the patient. B-D INSULIN SYRINGE 1CC/25GX1 25G X 1 1 ML MISC USE TO INJECT 0.2 ML TESTOSTERONE EVERY 3 DAYS 3 12/10/19 18 Active pantoprazole EC (PROTONIX) 40 MG tablet 12/28/19 18 Active testosterone cypionate (DEPO-TESTOTER ONE) 200 MG/ML injection INJECT 0.2 ML INTERMUSCULARLY EVERY 3 DAYS 3 12/09/19 18 Active ofloxacin (FLOXIN) 0.3 % otic solution 5 drops 2 times daily Apply 5 drops with mycolog 5 mL 12/29/19 18 Active nystatin/triam cinolone (MYCOLOG) 356706-6.1 UNIT/GM-% ointment Apply to affected area 2 times daily Apply 3 times per week with external ear infections 500 g 2 12/29/19 18 Active Active Problems Problem Noted Date Diagnosed [...] at Not on file Legal Sex Male 5:59 PM CDT Gender Identity Not on file Sexual [...] 3-dose series) 1996 SCREENING FOR DIABETES 12/28/2017 COVID-19 VACCINE ( - 2023-2 5 season) 2024 DEPRESSION SCREENING 09/13/2024 INFLUENZA VACCINE (Season Ended) 2025 ZOSTER VACCINE (1 of 2) 2027 HIB VACCINE Aged Out No longer eligi ble based on patient's age to complete this topic HPV VACCINE Aged Out No longer eligi ble based on patient's age to complete this topic MENINGOCOCCAL (Group B) VACC INE SHARED DECISION-MAKING Aged Out No longer eligibl e based on patient's age to complete this topic MENINGOCOCCAL GROUPS A/C/Y/W VACCINE Aged Out No longer eligible b ased on patient's age to complete this topic PNEUMOCOCCAL VACCINE Aged Out No long er eligible based on patient's age to complete this topic Insurance Care Teams Windshield Installer Relationship Specialty Start Date End Date Garrett Jean DO PCP - General 12/22/17
[2025-01-08 19:20] LABS: Basophils Absolute Auto 0.1 K/mm3 (0.0-0.1); Basophils Percent Auto 0.9 % (0.2-1.2); Eosinophils Absolute Auto 0.4 K/mm3 (0-0.3); Eosinophils Percent Auto 3.6 % (0-4.4); Hemoglobin 13.3 g/dL (14.0-18.0); Immature Granulocyte Absolute 0.06 K/mm3 (0.00-0.031); Immature Granulocyte Percent A 0.6 % (0-0.5); Lymphocytes Absolute Auto 3.03 K/mm3 (0.9-3.2); Lymphocytes Percent Auto 29.9 % (18.3-44.2); Mean Corpuscular HGB Conc 32.4 g/dl (32-36); Mean Corpuscular Volume 89.3 fl (80-100); Mean Platelet Volume 10.1 fl (7.4-10.4); Monocytes Absolute Auto 0.9 K/mm3 (0.1-0.6); Monocytes Percent Auto 9.3 % (2.6-8.5); Neutrophils Absolute Auto 5.7 K/mm3 (1.3-6.7); Neutrophils Percent Auto 55.7 % (45.5-73.1); Platelet Count Result 420 k/mm3 (150-375); Red Blood Count 4.59 M/mm3 (4.6-6.20); Red Cell Distribution Width 13.8 % (11.5-14.5); White Blood Count 10.1 K/mm3 (4.5-10.0)
[2025-01-08 19:26] LABS: Alanine Aminotransferase 54 U/L (6-50); Albumin Level 4.2 g/dL (3.5-5.1); Alkaline Phosphatase 45 U/L (38-126); Anion Gap 8 mmol/L (4-12); Aspartate Amino Transferase 40 U/L (17-59); Bilirubin,Total 0.6 mg/dL (0.2-1.3); Blood Urea Nitrogen 21 mg/dL (9-20); Calcium 8.8 mg/dL (8.4-10.2); Carbon Dioxide 28 mmol/L (22-30); Chloride 103 mmol/L (98-107); Estimated Glomerular Filt Rate > 60; Glucose 101 mg/dL (65-110); Potassium 4.3 mmol/L (3.4-5.0); Sodium 139 mmol/L (137-145)
== END 2025-01-08 15:34 | disposition home or self-care (01) ==
LOC: ANHGOSHLAB 15:34
PROVIDERS: PCP Internal Medicine; Visit Provider Student in an Organized Health Care Education/Training Program
DX: R04.2 Hemoptysis (principal)
CPT/HCPCS: 36415; 80053; 85025

== ENCOUNTER 2025-01-08 15:39 | Outpatient (CLI) | payer OTHER, SELFPAY ==
--- NOTE | ~2025-01-08 | XR_ITS ---
Clinical Indication: Hemoptysis PA and lateral views of the chest: Comparison: None Findings: The lungs are clear, without evidence of focal consolidation or pleural effusion. Cardiome diastinal silhouette is within normal limits. Neurostimulator device present. Bones and soft tissues are unremarkable. Impression: Clear lungs. Neurostimulator device. Reviewed, dictated and finalized at location . Impression: Clear lungs. Neurostimulator device.
== END 2025-01-08 15:40 | disposition home or self-care (01) ==
LOC: GOSHIMG 15:40
PROVIDERS: PCP Internal Medicine; Visit Provider Student in an Organized Health Care Education/Training Program
DX: R04.2 Hemoptysis (principal); Z96.82 Presence of neurostimulator
CPT/HCPCS: 71046

== ENCOUNTER 2025-01-25 17:18 | Emergency (ER) | payer OTHER, SELFPAY ==
[2025-01-25] VITALS (7 sets, daily range): BP systolic 113–154; BP diastolic 75–107; PULSE 74–98; RESP 16–18; TEMP 37; O2SAT 96–99
--- NOTE | ~2025-01-25 | XR_ITS ---
XR ankle RT min 3V Ordering provider: Monse Shukla APRN History: . R ankle injury . Comparison: None. FINDINGS: BONES: No acute fracture or dislocation. JOINT SPACES: Normal. SOFT TISSUES: Normal. IMPRESSION: No acute osseous abnormality of the right ankle. Reviewed, dictated and finalized at location A.
--- NOTE | ~2025-01-25 | US_ITS ---
RIGHT LOWER EXTREMITY VENOUS ULTRASOUND Ordering provider: Monse Shukla APRN History: . R lower leg swelling and pain in calf . Comparison: None. FINDINGS: --COMMON FEMORAL: Patent and free of thrombus. Normal compressibility, phasic flow and augmentation. --PROXIMAL SUPERFICIAL FEMORAL: Patent and free of thrombus. Normal compressibility, phasic flow and augmentation. --DISTAL SUPERFICIAL FEMORAL: Patent and free of thrombus. Normal compressibility, phasic flow and au gmentation. --POPLITEAL: Patent and free of thrombus. Normal compressibility, phasic flow and augmentation. --POSTERIOR TIBIAL: Patent and free of thrombus. Normal compressibility, phasic flow and augmentation . IMPRESSION: Negative right lower extremity venous US. No deep vein thrombosis. Reviewed, dictated and finalized at location A.
--- NOTE | ~2025-01-25 | XR_ITS ---
XR tibia fibula RT 2V Ordering provider: Monse Shukla APRN History: . R lower extremity pain . Comparison: None. FINDINGS: BONES: No acute fracture or dislocation. JOINT SPACES: Normal. SOFT TISSUES: Normal. IMPRESSION: No acute osseous abnormality right leg. Reviewed, dictated and finalized at location A.
--- OUTSIDE RECORDS SUMMARY | 2025-01-25 17:21 | XMS_ITS | Clinical Summary ---
Author Organization [facility] [employer] Address [address] [place] [address] Care Team Providers Care Plant Manager Name Role Phone Garrett Jean DO Primary Care Provider [phone] Source Comments [facility] [employer],non-owned Affiliates and Associated Physician Practices is amultiple site organization consisting of ambulatory clinics and hospital sitesin [place], [place], [place] and [place]. This disclosure is being madepursuant to the Care Everywhere program and may not contain all information available regarding this patient. Last updated 18.[facility] [employer] Medications * Be aware that medications may [...] mL 12/29/19 18 Active nystatin/triam cinolone (MYCOLOG) 473988-2.1 UNIT/GM-% ointment Apply to affected area 2 [...] to complete this topic Insurance Care Teams Plant Manager Relationship Specialty Start Date End Date Garrett Jean DO PCP - General 12/22/17
--- OUTSIDE RECORDS SUMMARY | 2025-01-25 17:21 | XMS_ITS | Clinical Summary ---
Author Organization [facility] Care Team Providers Care Serging Machine Operator Automatic Name Role Phone Unavailable Primary Care Provider [...]
--- NOTE | 2025-01-25 18:32 | ED.EXTPRO ---
HPI - Extremity Problem General Chief complaint: Extremity Problem,Nontraumatic <Monse Shukla APRN - Last Filed: 01/25/25 22:14> Stated complaint: Right leg swelling/pain today-no injury <Monse Shukla APRN - Last Filed: 01/25/25 22:14> Time Seen by Provider: 01/25/25 18:21 <Monse Shukla APRN - Last Filed: 01/25/25 22:14> History of Present Illness HPI Narrative: Patient is a 49-year-old male who presents to the ER with right calf pain. He reports he injured his right ankle about a week ago. Patient reports started experiencing right calf pain this morning and his right lower extremity has swollen throughout the day. He denies any history of blood clots, cancer diagnoses, or irregular heart rates. Patient reports he has a history of high blood pressure and is a former cigarette smoker. He denies any recent fevers, decreased range of motion, numbness and tingling in his right lower extremity. <Monse Shukla APRN - Last Filed: 01/25/25 22:14> Related Data Home medications: Home Medications Medication Instructions Recorded Confirmed Last Taken Type testosterone cypionate 100 mg/mL 50 mg IM MONTHLY 02/16/20 01/23/25 Unknown History intramuscular oil tadalafil 5 mg tablet 5 mg PO DAILY 10/27/23 01/23/25 06/07/24 History <Monse Shukla APRN - Last Filed: 01/25/25 22:14> Allergies/Adverse reactions: Allergies Allergy/AdvReac Type Severity Reaction Status Date / Time No Known Allergies Allergy Unknown Verified 01/25/25 18:33 <Monse Shukla APRN - Last Filed: 01/25/25 22:14> Review of Systems Review of Systems: All systems reviewed & are unremarkable except as noted in HPI and below <Monse Shukla APRN - Last Filed: 01/25/25 22:14> PMFSH Past Medical History Medical History: Medical History Davenport's palsy Internal hemorrhoids Hernia Hyperlipidemia <Monse Shukla APRN - Last Filed: 01/25/25 22:14> Surgical History Surgical History: Surgical History History of elbow surgery (~06/08/24) Left elbow common extensor MI H/O vasectomy 11/2019 History of hernia repair <Monse Shukla APRN - Last Filed: 01/25/25 22:14> Family History Family History: Family History Mother Patient's mother is in good health Father Diabetes mellitus <Monse Shukla APRN - Last Filed: 01/25/25 22:14> Social History Social History: Social History Social History: Caffeine occasionally Years smoked: 20 Smoking status: Former smoker Tobacco type: cigarettes Second hand tobacco smoke exposure: No Smoking end date: 08/26/17 Alcohol intake: current Alcohol use details: occasionally Substance use: current Substance use type: marijuana Other substance usage details: medical card Do You Feel Safe in your Home?: Yes Lack of Transportation: No Lack of Food: Never True Current Housing: I Have Housing Concerned About Future Housing: No Difficulty Paying Gas/Electric Bills: No Difficulty Paying for Meds: No Currently Unemployed: No Education: Associate Degree Difficulty w/ Childcare or Family Care: No Living arrangements: with family Spiritual care concerns: No <Monse Shukla APRN - Last Filed: 01/25/25 22:14> Exam Narrative: GENERAL: Well appearing, well-nourished, non-toxic, in no acute distress. HEAD: Normocephalic, atraumatic. NECK: Supple. No adenopathy, no masses. RESPIRATORY: Airway patent, respirations nonlabored. Clear to auscultation bilaterally, no rales, rhonchi, wheezing. CARDIOVASCULAR: Regular rate and rhythm without murmurs, rubs, or gallops. Peripheral pulses 2+ and equal bilaterally. ABDOMINAL: Soft, nontender, nondistended, no hepatosplenomegaly. Normoactive BS. MUSCULOSKELETAL: Moves all extremities. Strength/ROM intact without gross deformities. R lower extremity edema below knee. + Kassidy's sign. -Naylor test SKIN: Warm, dry, normal color. No rashes. NEURO: A&O X3. Speech clear. Cranial nerves II-XII intact. No ataxic movements. PSYCHIATRIC: Appropriate mood and affect. Normal interaction. <Monse Shukla APRN - Last Filed: 01/25/25 22:14> Course AMUSEMENT RIDE INSPECTOR/PA Physician Supervision I agree with midlevel documentation; I performed the medical decision making component of this evaluation. I had independent lduv-st-msiv time with the patient and performed my own independent evaluation and assessment. <Johnnie Berrios MD - Last Filed: 01/26/25 06:31> Vital Signs Vital signs: Vital Signs Temperature 37.0 C 01/25/25 17:43 Pulse Rate 98 01/25/25 17:43 Respiratory Rate 18 01/25/25 17:43 Blood Pressure 154/92 H 01/25/25 17:43 Pulse Oximetry 99 01/25/25 17:43 Oxygen Delivery Room Air 01/25/25 17:43 Temperature 37.0 C 01/25/25 17:43 Pulse Rate 74 01/25/25 22:22 Respiratory Rate 18 01/25/25 22:22 Blood Pressure 119/93 H 01/25/25 22:22 Pulse Oximetry 99 01/25/25 22:22 Oxygen Delivery Room Air 01/25/25 17:43 <Monse Shukla, SIX HORSE HITCH DRIVER - Last Filed: 01/25/25 22:14> Vital Signs Temperature 37.0 C 01/25/25 17:43 Pulse Rate 98 01/25/25 17:43 Respiratory Rate 18 01/25/25 17:43 Blood Pressure 154/92 H 01/25/25 17:43 Pulse Oximetry 99 01/25/25 17:43 Oxygen Delivery Room Air 01/25/25 17:43 Temperature 37.0 C 01/25/25 17:43 Pulse Rate 74 01/25/25 22:22 Respiratory Rate 18 01/25/25 22:22 Blood Pressure 119/93 H 01/25/25 22:22 Pulse Oximetry 99 01/25/25 22:22 Oxygen Delivery Room Air 01/25/25 17:43 <Johnnie Berrios MD - Last Filed: 01/26/25 06:31> MDM - Extremity (Nontraumatic) MDM Narrative Medical decision making narrative: Patient is a 49-year-old male who presents to the ER with right calf pain. He reports he injured his right ankle about a week ago. Patient reports started experiencing right calf pain this morning and his right lower extremity has swollen throughout the day. He denies any history of blood clots, cancer diagnoses, or irregular heart rates. Patient reports he has a history of high blood pressure and is a former cigarette smoker. He denies any recent fevers, decreased range of motion, numbness and tingling in his right lower extremity. Labs Ordered: CBC, CMP Imaging Ordered: Ultrasound venous Doppler right lower extremity, right ankle x-ray, right tib-fib x-ray Medications Ordered: Zanaflex 2 mg p.o. Results: Pt's US indiccates -COMMON FEMORAL: Patent and free of thrombus. Normal compressibility, phasic flow and augmentation. --PROXIMAL SUPERFICIAL FEMORAL: Patent and free of thrombus. Normal compressibility, phasic flow and augmentation. --DISTAL SUPERFICIAL FEMORAL: Patent and free of thrombus. Normal compressibility, phasic flow and augmentation. --POPLITEAL: Patent and free of thrombus. Normal compressibility, phasic flow and augmentation. --POSTERIOR TIBIAL: Patent and free of thrombus. Normal compressibility, phasic flow and augmentation. Diagnosis: Gastrocnemius Patient Education/Shared MDM: Results of lab work and imaging shared with patient. He endorses improvement of symptoms following medication administration, but would like a shot of Toradol and a second Zanaflex before leaving. Patient strongly advised to maintain hydration status upon discharge and follow-up with their PCP or orthopedics as soon as possible. He will be discharged home with a prescription for Zanaflex. Strict return precautions provided. Patient verbalized understanding and is in agreement with plan. Vital signs stable at time of discharge. All questions answered. <Monse Shukla APRN - Last Filed: 01/25/25 22:14> Differential Diagnosis Differential diagnosis: Likely cellulitis, lower extremity edema, deep vein thrombosis of lower extremity and other (gastrocnemius tears) <Monse Shukla APRN - Last Filed: 01/25/25 22:14> Lab Data Result diagrams: 01/25/25 20:40 01/25/25 20:40 <Monse Shukla APRN - Last Filed: 01/25/25 22:14> Labs: Lab Results 01/25/25 Range/Units 20:40 WBC 13.3 H (4.5-10.0) K/mm3 RBC 4.88 (4.6-6.20) M/mm3 Hgb 14.1 (14.0-18.0) g/dL Hct 42.7 (42.0-52.0) % MCV 87.5 (80-100) fl MCH 28.9 (26-34) pg MCHC 33.0 (32-36) g/dl RDW 13.7 (11.5-14.5) % Plt Count 446 H (150-375) k/mm3 MPV 9.2 (7.4-10.4) fl Immature Gran % (Auto) 0.3 (0-0.5) % Neut % (Auto) 62.0 (45.5-73.1) % Lymph % (Auto) 26.4 (18.3-44.2) % [place] % (Auto) 9.3 H (2.6-8.5) % Eos % (Auto) 1.4 (0-4.4) % Baso % (Auto) 0.6 (0.2-1.2) % Lymph # (Auto) 3.50 H (0.9-3.2) K/mm3 [place] # (Auto) 1.2 H (0.1-0.6) K/mm3 Eos # (Auto) 0.2 (0-0.3) K/mm3 Baso # (Auto) 0.1 (0.0-0.1) K/mm3 Abs Immat Gran (auto) 0.04 H (0.00-0.031) K/mm3 Absolute Neuts (auto) 8.2 H (1.3-6.7) K/mm3 Absolute Nucleated RBC 0.000 (0.0-0.012) K/mm3 Nucleated RBC % 0.0 (0.0-0.2) % Sodium 140 (137-145) mmol/L Potassium 4.2 (3.4-5.0) mmol/L Chloride 107 (98-107) mmol/L Carbon Dioxide 23 (22-30) mmol/L Anion Gap 10 (4-12) mmol/L BUN 20 (9-20) mg/dL Creatinine 1.23 (0.7-1.3) mg/dL Estim Creat Clear Calc 88 ml/min Estimated GFR > 60 (59 - ) Glucose 94 (65-110) mg/dL Calcium 9.0 (8.4-10.2) mg/dL Total Bilirubin 0.6 (0.2-1.3) mg/dL AST 39 (17-59) U/L ALT 49 (6-50) U/L Alkaline Phosphatase 45 (38-126) U/L Total Protein 8.0 (6.3-8.2) g/dL Albumin 4.5 (3.5-5.1) g/dL <Monse Shukla, SIX HORSE HITCH DRIVER - Last Filed: 01/25/25 22:14> Lab Results 01/25/25 Range/Units 20:40 WBC 13.3 H (4.5-10.0) K/mm3 RBC 4.88 (4.6-6.20) M/mm3 Hgb 14.1 (14.0-18.0) g/dL Hct 42.7 (42.0-52.0) % MCV 87.5 (80-100) fl MCH 28.9 (26-34) pg MCHC 33.0 (32-36) g/dl RDW 13.7 (11.5-14.5) % Plt Count 446 H (150-375) k/mm3 MPV 9.2 (7.4-10.4) fl Immature Gran % (Auto) 0.3 (0-0.5) % Neut % (Auto) 62.0 (45.5-73.1) % Lymph % (Auto) 26.4 (18.3-44.2) % [place] % (Auto) 9.3 H (2.6-8.5) % Eos % (Auto) 1.4 (0-4.4) % Baso % (Auto) 0.6 (0.2-1.2) % Lymph # (Auto) 3.50 H (0.9-3.2) K/mm3 [place] # (Auto) 1.2 H (0.1-0.6) K/mm3 Eos # (Auto) 0.2 (0-0.3) K/mm3 Baso # (Auto) 0.1 (0.0-0.1) K/mm3 Abs Immat Gran (auto) 0.04 H (0.00-0.031) K/mm3 Absolute Neuts (auto) 8.2 H (1.3-6.7) K/mm3 Absolute Nucleated RBC 0.000 (0.0-0.012) K/mm3 Nucleated RBC % 0.0 (0.0-0.2) % Sodium 140 (137-145) mmol/L Potassium 4.2 (3.4-5.0) mmol/L Chloride 107 (98-107) mmol/L Carbon Dioxide 23 (22-30) mmol/L Anion Gap 10 (4-12) mmol/L BUN 20 (9-20) mg/dL Creatinine 1.23 (0.7-1.3) mg/dL Estim Creat Clear Calc 88 ml/min Estimated GFR > 60 (59 - ) Glucose 94 (65-110) mg/dL Calcium 9.0 (8.4-10.2) mg/dL Total Bilirubin 0.6 (0.2-1.3) mg/dL AST 39 (17-59) U/L ALT 49 (6-50) U/L Alkaline Phosphatase 45 (38-126) U/L Total Protein 8.0 (6.3-8.2) g/dL Albumin 4.5 (3.5-5.1) g/dL <Johnnie Berrios MD - Last Filed: 01/26/25 06:31> Discharge Plan Discharge Clinical Impression: Gastrocnemius muscle tear, Leg edema, right, Right leg pain <Monse Shukla APRN - Last Filed: 01/25/25 22:14> Patient Disposition: Home <Monse Shukal APRN - Last Filed: 01/25/25 22:14> Condition: Stable <Monse Shukla APRN - Last Filed: 01/25/25 22:14> Instructions: Antibiotic Form, Musculoskeletal Pain (ED), P.R.I.C.E. Treatment (ED) <Monse Shukla APRN - Last Filed: 01/25/25 22:14> Additional Instructions: Please return to the ER with any worsening symptoms. Follow-up with primary care provider as soon as possible. Take all regularly scheduled medications. <Monse Shukla APRN - Last Filed: 01/25/25 22:14> Patient Language: Korean <Monse Shukla APRN - Last Filed: 01/25/25 22:14> Prescriptions: New tizanidine [Zanaflex] 4 mg capsule 4 mg PO TID PRN (Reason: muscle spasticity) Qty: 20 0RF No Action testosterone cypionate 100 mg/mL oil 50 mg IM MONTHLY Rx Instructions: as a single dose. PRESCRIBED BY DR. ARRIAGA tadalafil 5 mg tablet 5 mg PO DAILY pantoprazole 40 mg tablet,delayed release (DR/EC) 40 mg PO BID Qty: 180 1RF <Monse Shukla APRN - Last Filed: 01/25/25 22:14> Follow-up/Referrals: Yariel Arriola MD [Physician] - (orthopedics ) Garrett Jean DO [Primary Care Provider] - <Monse Shukla APRN - Last Filed: 01/25/25 22:14> Stand Alone Forms: Work/School Release IP <Monse Shukla APRN - Last Filed: 01/25/25 22:14> Time of Disposition: 21:54 <Monse Shukla APRN - Last Filed: 01/25/25 22:14> 21:54 <Johnnie Berrios MD - Last Filed: 01/26/25 06:31>
--- OUTSIDE RECORDS SUMMARY | 2025-01-25 19:19 | XMS_ITS | Clinical Summary ---
Author Organization [facility] Care Team Providers Care [place] Actor Name Role Phone Unavailable Primary Care Provider [...]
--- OUTSIDE RECORDS SUMMARY | 2025-01-25 19:19 | XMS_ITS | Clinical Summary ---
Author Organization [facility] [employer] Address [address] [place] [address] Care Team Providers Care Sticker Machine Operator Name Role Phone Garrett Jean DO Primary Care Provider Source Comments [facility] [employer],non-owned Affiliates and Associated Physician Practices is amultiple site organization consisting of ambulatory clinics and hospital sitesin [place], [place], [place] and [place]. This disclosure is being madepursuant to the Care Everywhere program and may not contain all information available regarding this patient. Last updated 18.[facility] [employer] Medications * Be aware that medications may [...] mL 12/29/19 18 Active nystatin/triam cinolone (MYCOLOG) 177795-3.1 UNIT/GM-% ointment Apply to affected area 2 [...] to complete this topic Insurance Care Teams Sticker Machine Operator Relationship Specialty Start Date End Date Garrett Jean DO PCP - General 12/22/17
--- NOTE | 2025-01-25 19:30 | PC.NURSE ---
Received report from WILL Wiseman for cont. of care. Pt AOX4 lying on stretcher c/o 5/10 R calf pain, non radiating.
[2025-01-25] MEDS: TIZANIDINE HCL 2 MG TABLET PO ×2 (20:34→22:18)
[2025-01-25 20:46] LABS: Basophils Absolute Auto 0.1 K/mm3 (0.0-0.1); Basophils Percent Auto 0.6 % (0.2-1.2); Eosinophils Absolute Auto 0.2 K/mm3 (0-0.3); Eosinophils Percent Auto 1.4 % (0-4.4); Hematocrit 42.7 % (42.0-52.0); Hemoglobin 14.1 g/dL (14.0-18.0); Immature Granulocyte Absolute 0.04 K/mm3 (0.00-0.031); Immature Granulocyte Percent A 0.3 % (0-0.5); Lymphocytes Percent Auto 26.4 % (18.3-44.2); Mean Corpuscular Hemoglobin 28.9 pg (26-34); Mean Corpuscular Volume 87.5 fl (80-100); Mean Platelet Volume 9.2 fl (7.4-10.4); Monocytes Absolute Auto 1.2 K/mm3 (0.1-0.6); Monocytes Percent Auto 9.3 % (2.6-8.5); Neutrophils Absolute Auto 8.2 K/mm3 (1.3-6.7); Platelet Count Result 446 k/mm3 (150-375); Red Blood Count 4.88 M/mm3 (4.6-6.20); Red Cell Distribution Width 13.7 % (11.5-14.5); White Blood Count 13.3 K/mm3 (4.5-10.0)
[2025-01-25 20:57] LABS: Alanine Aminotransferase 49 U/L (6-50); Albumin Level 4.5 g/dL (3.5-5.1); Alkaline Phosphatase 45 U/L (38-126); Anion Gap 10 mmol/L (4-12); Aspartate Amino Transferase 39 U/L (17-59); Bilirubin,Total 0.6 mg/dL (0.2-1.3); Blood Urea Nitrogen 20 mg/dL (9-20); Carbon Dioxide 23 mmol/L (22-30); Chloride 107 mmol/L (98-107); Estimated CRCL calculation 88 ml/min; Estimated Glomerular Filt Rate > 60; Glucose 94 mg/dL (65-110); Potassium 4.2 mmol/L (3.4-5.0); Sodium 140 mmol/L (137-145)
[2025-01-25] MEDS: KETOROLAC (*BKC) 60 MG/2 ML VIAL IM (21:59)
== END 2025-01-25 22:20 | disposition home or self-care (01) ==
PROVIDERS: Emergency Provider Registered Nurse; PCP Internal Medicine
DX: S86.811A Strain of other muscle(s) and tendon(s) at lower leg level, right leg, initial encounter (principal); E78.5 Hyperlipidemia, unspecified; Z87.891 Personal history of nicotine dependence; X58.XXXA Exposure to other specified factors, initial encounter
CPT/HCPCS: 36415; 73590; 73610; 80053; 85025; 93971; 96372; 99284; A9270; J1885

== ENCOUNTER 2025-01-29 00:09 | Day surgery (SDC) | payer OTHER, SELFPAY ==
[2025-01-23 12:25] VITALS: BMI 34.0
--- OUTSIDE RECORDS SUMMARY | 2025-01-29 00:11 | XMS_ITS | Clinical Summary ---
Author Organization [facility] [employer] Address [address] [place] [address] Care Team Providers Care Grocery Store Associate Name Role Phone Garrett Jean DO Primary Care Provider [phone] Source Comments [facility] [employer],non-owned Affiliates and Associated Physician Practices is amultiple site organization consisting of ambulatory clinics and hospital sitesin [place], [place], [place] and [place]. This disclosure is being madepursuant to the Care Everywhere program and may not contain all information available regarding this patient. Last updated 18.[facility] [employer] Medications * Be aware that medications may [...] mL 12/29/19 18 Active nystatin/triam cinolone (MYCOLOG) 600145-3.1 UNIT/GM-% ointment Apply to affected area 2 [...] to complete this topic Insurance Care Teams Grocery Store Associate Relationship Specialty Start Date End Date Garrett Jean DO PCP - General 12/22/17
--- OUTSIDE RECORDS SUMMARY | 2025-01-29 00:11 | XMS_ITS | Clinical Summary ---
Author Organization [facility] Care Team Providers Care Executive Assistant To General Counsel Name Role Phone Unavailable Primary Care Provider [...]
[2025-01-29 08:55] VITALS: BP 176/87; PULSE 80; RESP 18; TEMP 35.7; O2SAT 98
[2025-01-29] MEDS: LACTATED RINGERS 1,000 ML 150 ML IV CONT (09:04)
--- NOTE | 2025-01-29 09:04 | WPDANESEPPF ---
Anes - Initial Pre Proc Eval Procedure: Operation Date: 01/29/25 11:00 Proposed Procedures p Esophagogastroduodenoscopy & Colonoscopy - Benoit Prado MD Date/Time: 01/29/25 09:04 Surgeon: Benoit Prado MD Pre Op Diagnosis: Hematemesis Patient Data Age: 49 Gender: M Height: 1.83 m Weight: 114.9 kg Last Vital Signs Temp 35.7 C L 01/29/25 08:55 Pulse 80 01/29/25 08:55 Resp 18 01/29/25 08:55 BP 176/87 H 01/29/25 08:55 Pulse Ox 98 01/29/25 08:55 O2 Del Method Room Air 01/29/25 08:55 Allergies Allergy/AdvReac Type Severity Reaction Status Date / Time No Known Allergies Allergy Unknown Verified 01/29/25 08:54 Home Medications Medication Instructions Recorded Confirmed Type testosterone cypionate 100 mg/mL 50 mg IM MONTHLY 02/16/20 01/29/25 History intramuscular oil tadalafil 5 mg tablet 5 mg PO DAILY 10/27/23 01/29/25 History pantoprazole 40 mg tablet,delayed 40 mg PO BID #180 tabs 01/08/25 01/29/25 Rx release tizanidine 4 mg capsule (Zanaflex) 4 mg PO TID PRN muscle spasticity 01/25/25 01/29/25 Rx #20 caps Patient hx anesthesia problems: none Family hx anesthesia problems: none Results Review: All pre-operative results and documents have been reviewed as part of the pre-operative evaluation. [facility] Past Medical History Medical History Davenport's palsy Internal hemorrhoids Hernia Hyperlipidemia Surgical History Surgical History History of elbow surgery (~06/08/24) Left elbow common extensor MI H/O vasectomy 11/2019 History of hernia repair Family History Family History Mother Patient's mother is in good health Father Diabetes mellitus Social History Social History Social History: Caffeine occasionally Years smoked: 20 Smoking status: Former smoker Tobacco type: cigarettes Second hand tobacco smoke exposure: No Smoking end date: 08/26/17 Alcohol intake: current Alcohol use details: occasionally Substance use: current Substance use type: marijuana Other substance usage details: medical card Last use: occasionally Do You Feel Safe in your Home?: Yes Lack of Transportation: No Lack of Food: Never True Current Housing: I Have Housing Concerned About Future Housing: No Difficulty Paying Gas/Electric Bills: No Difficulty Paying for Meds: No Currently Unemployed: No Education: Associate Degree Difficulty w/ Childcare or Family Care: No Living arrangements: with family Spiritual care concerns: No Anes - Eval Final PreProcedure Day of Procedure 01/29/25 09:04 Patient weight: obese Heart: regular rate and rhythm Lungs: clear to auscultation Airway: Mallampati scale class II Neurological: alert and oriented Last oral intake: >/= 8 hours ASA classification: III Emergent: no Anesthetic plan: proceed Anesthesia type and monitoring: general GIVS and standard monitoring Results Review: All pre-operative results and documents have been reviewed as part of the pre-operative evaluation. Informed Consent: The patient's anesthetic plan and its attendant risks and benefits were discussed with the patient/family/POA. Questions were solicited and answers provided to the satisfaction of the patient/family/POA.
--- NOTE | 2025-01-29 09:22 | PM.HPGS ---
History of Present Illness History of Present Illness Consent: Risks, benefits, and alternatives have been discussed and questions answered. Patient agrees to proceed with procedure. Chief complaint: Hematemesis Narrative: Jonathan Mckenzie is a 49 year old male here for screening colonoscopy (last one more than 15 years ago). About 1 month ago had emesis with blood in it. He has GERD on pantoprazole daily. Review of Systems Review of Systems: All systems reviewed & are unremarkable except as noted in HPI and below PMFSH Past Medical History Medical History (Updated 01/29/25 @ 09:24 by Benoit Prado MD) Colon cancer screening Davenport's palsy Internal hemorrhoids Hernia Hyperlipidemia Surgical History Surgical History History of elbow surgery (~06/08/24) Left elbow common extensor MI H/O vasectomy 11/2019 History of hernia repair Family History Family History Mother Patient's mother is in good health Father Diabetes mellitus Social History Social History Social History: Caffeine occasionally Years smoked: 20 Smoking status: Former smoker Tobacco type: cigarettes Second hand tobacco smoke exposure: No Smoking end date: 08/26/17 Alcohol intake: current Alcohol use details: occasionally Substance use: current Substance use type: marijuana Other substance usage details: medical card Last use: occasionally Do You Feel Safe in your Home?: Yes Lack of Transportation: No Lack of Food: Never True Current Housing: I Have Housing Concerned About Future Housing: No Difficulty Paying Gas/Electric Bills: No Difficulty Paying for Meds: No Currently Unemployed: No Education: Associate Degree Difficulty w/ Childcare or Family Care: No Living arrangements: with family Spiritual care concerns: No Meds Home Medications and Allergies Home Medications Medication Instructions Recorded Confirmed Type testosterone cypionate 100 mg/mL 50 mg IM MONTHLY 02/16/20 01/29/25 History intramuscular oil tadalafil 5 mg tablet 5 mg PO DAILY 10/27/23 01/29/25 History pantoprazole 40 mg tablet,delayed 40 mg PO BID #180 tabs 01/08/25 01/29/25 Rx release tizanidine 4 mg capsule (Zanaflex) 4 mg PO TID PRN muscle spasticity 01/25/25 01/29/25 Rx #20 caps Allergies Allergy/AdvReac Type Severity Reaction Status Date / Time No Known Allergies Allergy Unknown Verified 01/29/25 08:54 Vital Signs Vital Signs - 24 hr 01/29/25 08:55 Temperature 96.3 F L Pulse Rate 80 Respiratory Rate 18 Blood Pressure 176/87 H Pulse Oximetry 98 Oxygen Delivery Room Air Exam Const: General: comfortable and no acute distress HENMT: Face/Nose/Sinus: Normal nares present Eyes: General: appearance normal, both eyes and all related structures Neck: Neck: no JVD Resp: Auscultation: clear to auscultation bilaterally Cardio: Rate: regular rate Rhythm: regular rhythm GI: Inspection: non-distended GI Palp: Yes Soft to palpation Skin: General skin exam: normal color Neuro: General: gait normal Speech: normal speech Extrem: General: normal to inspection Psych: Mental Status: mental status grossly normal Assessment and Plan Assessment and plan (1) Coffee ground emesis: Code(s): K92.0 - Hematemesis Status: Acute Assessment and Plan: egd (2) Colon cancer screening: Code(s): Z12.11 - Encounter for screening for malignant neoplasm of colon Status: Acute Assessment and Plan: colonoscopy
[2025-01-29] MEDS: BENZOCAINE (*SP) 60 ML SPRAY CAN (HURRICAINE) 1 SPRAY MUCOUS MEM (09:29)
--- NOTE | 2025-01-29 09:36 | SUR.OPER ---
EGD ended at 930, colon began at 935.
[2025-01-29 09:47] VITALS: BP 112/66; PULSE 70; RESP 17; O2SAT 99
[2025-01-29 09:57] VITALS: BP 122/74; PULSE 68; RESP 16; O2SAT 96
[2025-01-29 10:07] VITALS: BP 123/74; PULSE 68; RESP 21; O2SAT 98
== END 2025-01-29 10:19 | disposition home or self-care (01) ==
PROVIDERS: PCP Internal Medicine; Referring Provider Student in an Organized Health Care Education/Training Program; Visit Provider Internal Medicine Gastroenterology
PROC: 0DJ08ZZ Inspection of Upper Intestinal Tract, Via Natural or Artificial Opening Endoscopic (ICD-10-PCS; CPT 45378; principal; 2025-01-29 11:00)
DX: Z12.11 Encounter for screening for malignant neoplasm of colon (principal); K64.8 Other hemorrhoids; K21.00 Gastro-esophageal reflux disease with esophagitis, without bleeding; K29.70 Gastritis, unspecified, without bleeding; E78.5 Hyperlipidemia, unspecified; F12.90 Cannabis use, unspecified, uncomplicated; E66.9 Obesity, unspecified; Z68.34 Body mass index [BMI] 34.0-34.9, adult; Z98.890 Other specified postprocedural states; Z87.891 Personal history of nicotine dependence
CPT/HCPCS: 43239; 45378; 88305; J2003; J2704; J7120

== ENCOUNTER 2025-04-30 15:27 | Outpatient (CLI) | payer OTHER, SELFPAY ==
--- OUTSIDE RECORDS SUMMARY | 2025-04-30 16:02 | XMS_ITS | Clinical Summary ---
Author Organization [facility] Care Team Providers Care Solid Waste Management Engineer Name Role Phone Unavailable Primary Care [...] of 3 - 19+ 3-dose series) 1996 Cologuard 2022 Colonoscopy 2022 Colorectal Cancer Screening 2022 Immunochemical Fecal Occult Blood 2022 SARS-COV-2 Immunization ( season) 2024 Influenza Immunization (#1) 2025 Respiratory Syncytial Virus (RSV) Immunization (Adult) (1 - 1-dose 75+ series) 2052 Human Papillomavirus (HPV) Immunization Aged Out No longer eligible b ased on patient's age to complete this topic Meningococcal Immunization (ACWY) Aged Out No longer eligible based on patient's age to complete this topic Pneumococcal Immunization Combined Aged Out No longer eligible based on patient's age to complete this topic Rotavirus Immunization Aged Out No lo nger eligible based on patient's age to complete this topic
--- OUTSIDE RECORDS SUMMARY | 2025-04-30 16:02 | XMS_ITS | Clinical Summary ---
Author Organization [facility] [employer] Address [address] [place] [address] Care Team Providers Care Assistant Professor Name Role Phone Garrett Jean DO Primary Care Provider [phone] Source Comments [facility] [employer],non-owned Affiliates and Associated Physician Practices is amultiple site organization consisting of ambulatory clinics and hospital sitesin [place], [place], [place] and [place]. This disclosure is being madepursuant to the Care Everywhere program and may not contain all information available regarding this patient. Last updated 18.[facility] [employer] Medications * Be aware that medications may [...] mL 12/29/19 18 Active nystatin/triam cinolone (MYCOLOG) 638901-7.1 UNIT/GM-% ointment Apply to affected area 2 [...] season) 2024 DEPRESSION SCREENING 09/13/2024 INFLUENZA VACCINE (#1) 2025 ZOSTER VACCINE (1 of 2) 2027 [...] patient's age to complete this topic Insurance [facility] [place] [address] SELF PAY NO INSURANCE Member Subscriber Plan / Payer (Ef fective for All Dates) Name:oJnathan Mckenzie Member ID:Not on file Relation to Subscriber:Not on file Name:JONATHAN MCKENZIE Subscriber ID:Not on file (Home) Address: [address] [place] [address] Payer ID:Not on file Group ID:Not on file Type:Self Pay Address: [facility] [place] [address] Care Teams Assistant Professor Relationship Specialty Start Date End Date Garrett Jean DO PCP - General 12/22/17
[2025-04-30 19:16] LABS: Hematocrit 39.3 % (42.0-52.0); Hemoglobin 13.4 g/dL (14.0-18.0); Immature Granulocyte Percent A 0.5 % (0-0.5); Lymphocytes Absolute Auto 3.07 K/mm3 (0.9-3.2); Mean Corpuscular HGB Conc 34.1 g/dl (32-36); Mean Corpuscular Hemoglobin 29.3 pg (26-34); Mean Corpuscular Volume 86.0 fl (80-100); Nucleated Red Blood Cells Absolute Auto 0.000 K/mm3 (0.0-0.012); Nucleated Red Blood Cells Perc 0.0 % (0.0-0.2); Platelet Count Result 393 k/mm3 (150-375); Red Blood Count 4.57 M/mm3 (4.6-6.20); White Blood Count 9.2 K/mm3 (4.5-10.0)
== END 2025-04-30 15:28 | disposition home or self-care (01) ==
LOC: ANHGOSHLAB 15:28
PROVIDERS: PCP Internal Medicine; Visit Provider Urology
DX: E29.1 Testicular hypofunction (principal)
CPT/HCPCS: 36415; 85025

== ENCOUNTER 2025-09-12 11:13 | Outpatient (CLI) | payer OTHER, SELFPAY ==
--- OUTSIDE RECORDS SUMMARY | 2025-09-12 11:34 | XMS_ITS | Clinical Summary ---
Author Organization [facility] Care Team Providers Care Hone Operator Name Role Phone Unavailable Primary Care Provider [...] Screening 2022 Immunochemical Fecal Occult Blood 2022 Influenza Immunization (#1) 2025 SARS-COV-2 Immunization ( season) 2025 Respiratory Syncytial Virus (RSV) Immunization (Adult) [...]
[2025-09-12 18:35] LABS: Hematocrit 45.0 % (42.0-52.0); Hemoglobin 15.1 g/dL (14.0-18.0); Immature Granulocyte Percent A 0.4 % (0-0.5); Lymphocytes Absolute Auto 2.58 K/mm3 (0.9-3.2); Mean Corpuscular HGB Conc 33.6 g/dl (32-36); Mean Corpuscular Hemoglobin 28.9 pg (26-34); Mean Corpuscular Volume 86.0 fl (80-100); Nucleated Red Blood Cells Absolute Auto 0.000 K/mm3 (0.0-0.012); Nucleated Red Blood Cells Perc 0.0 % (0.0-0.2); Platelet Count Result 392 k/mm3 (150-375); Red Blood Count 5.23 M/mm3 (4.6-6.20); White Blood Count 7.4 K/mm3 (4.5-10.0)
[2025-09-12 19:33] LABS: Prostate Specific Antigen 0.8 ng/mL (< OR = 4.0)
[2025-09-16 14:07] LABS: Estradiol, Sensitive 32.6 pg/mL (8.0-35.0)
[2025-09-19 01:07] LABS: Testosterone, Total, LC/MS 367 ng/dL (.)
== END 2025-09-12 11:14 | disposition home or self-care (01) ==
LOC: ANHGOSHLAB 11:14
PROVIDERS: PCP Internal Medicine; Visit Provider Urology
DX: E29.1 Testicular hypofunction (principal)
CPT/HCPCS: 36415; 82670; 84153; 84403; 85025